=== PATIENT | female | born 1980 | race Caucasian/White ===

== ENCOUNTER 2024-06-26 16:00 | Outpatient (RCR) | payer MEDICAID, SELFPAY | END 2024-06-27 09:29 | disposition home or self-care (01) | PROVIDERS: Visit Provider Orthopaedic Surgery Sports Medicine | DX: S80.11XA Contusion of right lower leg, initial encounter (principal); S80.02XA Contusion of left knee, initial encounter; Z51.89 Encounter for other specified aftercare | CPT/HCPCS: 97035; 97110; 97140; 97161 ==